=== PATIENT | male | born 1995 | race Caucasian/White ===

== ENCOUNTER 2017-04-04 17:50 | Emergency (ER) | payer OTHER ==
[~2017-04-04 17:50] MED LIST: NORCO 5-325 TA1 EACH PO; PHENERGAN W/CO120 ML PO
[2017-04-04] MEDS ORDERED: AZITHROMYCIN250 M1 PO (18:56)
[2017-04-04] MEDS ORDERED: PREDNISONE20 M1 PO (18:57)
== END 2017-04-04 19:52 ==
LOC: EDMED 17:50
DX: J01.90 Acute sinusitis, unspecified (principal)